=== PATIENT | male | born 1960 | race Caucasian/White ===

== ENCOUNTER 2023-10-23 12:58 | Emergency (ER) | payer SELFPAY ==
[~2023-10-23] VITALS: Ht 180.3 cm; Wt 87.0 kg
[2023-10-23 13:01] VITALS: O2SAT 96
[2023-10-23 13:17] VITALS: TEMP 98.1
[2023-10-23] MEDS: SODIUM CHLORIDE 0.9% 1,000 ML IV ONE (13:26)
[2023-10-23 13:53] LABS: BASOPHILS % 0.3 % (0.0-2.0); EOSINOPHILS % 1.2 % (0.0-5.0); HEMATOCRIT. 36.9 % (42.0-52.0); HEMOGLOBIN. 12.3 g/dL (14.0-18.0); LYMPHOCYTES % 19.3 % (20.0-50.0); MEAN CORPUSCULAR HEMOGLOBIN 39.4 pg (28.0-32.0); MEAN CORPUSCULAR HGB CONC 33.4 g/dL (31.0-37.0); MEAN CORPUSCULAR VOLUME 117.8 fL (80.0-94.0); MONOCYTES % 13.6 % (2.0-8.0); NEUTROPHILS % 65.6 % (40.0-76.0); RED BLOOD CELL COUNT 3.13 mill/uL (4.7-6.1); RED CELL DISTRIBUTION WIDTH 12.7 % (11.6-14.6); WHITE BLOOD COUNT 4.6 x1000/uL (4.5-11.0)
[2023-10-23 13:59] LABS: CHLORIDE 110 mEq/L (98-107); POTASSIUM 3.7 mEq/L (3.5-5.1); SODIUM 143 mEq/L (136-145)
[2023-10-23 14:00] LABS: CALCIUM 7.7 mg/dL (8.7-10.4); CARBON DIOXIDE 23 mEq/L (21-32)
[2023-10-23 14:01] LABS: DIFFERENTIAL COMMENT 1
[2023-10-23 14:02] LABS: ADD RBC MORPHOLOGY YES
[2023-10-23 14:05] LABS: CREATININE 0.9 mg/dL (0.6-1.3); GLUCOSE 97 mg/dL (70-105); UREA NITROGEN BLOOD 10 mg/dL (9-23)
[2023-10-23 14:30] LABS: PLATELET ESTIMATE DECREASED
[2023-10-23 15:42] VITALS: BP 128/78; PULSE 82; RESP 18
[2023-10-23] MEDS: HYDROCODONE/ACETAMINOPHEN 5/325MG TABLET PO STA (15:42)
== END 2023-10-23 15:55 | disposition home or self-care (01) ==
LOC: ER 12:58
DX: R53.1 Weakness (principal); I10 Essential (primary) hypertension; W18.30XA Fall on same level, unspecified, initial encounter; Y93.89 Activity, other specified; Y92.89 Other specified places as the place of occurrence of the external cause; Y99.8 Other external cause status
CPT/HCPCS: 99284; 96360; 80048; 85025; 36415; 93005; J7030